=== PATIENT | male | born 1950 | race Caucasian/White ===

== ENCOUNTER → 2020-05-20 | Outpatient (CLI) | payer OTHER | LOC: SJCVC 13:00 | PROVIDERS: ATTEND Internal Medicine Cardiovascular Disease | DX: I51.7 Cardiomegaly (principal); I25.10 Atherosclerotic heart disease of native coronary artery without angina pectoris; E78.00 Pure hypercholesterolemia, unspecified; R00.1 Bradycardia, unspecified; I77.9 Disorder of arteries and arterioles, unspecified; I10 Essential (primary) hypertension ==

== ENCOUNTER → 2021-05-26 | Outpatient (CLI) | payer OTHER | LOC: SJCVCIMAG 10:02 | PROVIDERS: ATTEND Internal Medicine Cardiovascular Disease | DX: I45.2 Bifascicular block (principal); R94.31 Abnormal electrocardiogram [ECG] [EKG]; I25.10 Atherosclerotic heart disease of native coronary artery without angina pectoris; R93.1 Abnormal findings on diagnostic imaging of heart and coronary circulation; I10 Essential (primary) hypertension; E78.00 Pure hypercholesterolemia, unspecified; I44.1 Atrioventricular block, second degree; I77.9 Disorder of arteries and arterioles, unspecified; Z79.82 Long term (current) use of aspirin; Z79.899 Other long term (current) drug therapy ==

== ENCOUNTER → 2021-06-10 | Outpatient (CLI) | payer OTHER | LOC: SJCVC 13:24 | PROVIDERS: ATTEND Internal Medicine Infectious Disease | DX: R94.31 Abnormal electrocardiogram [ECG] [EKG] (principal); I45.2 Bifascicular block; I48.92 Unspecified atrial flutter; I44.30 Unspecified atrioventricular block; I44.2 Atrioventricular block, complete; R00.1 Bradycardia, unspecified; E78.5 Hyperlipidemia, unspecified; I10 Essential (primary) hypertension; E78.00 Pure hypercholesterolemia, unspecified; I25.10 Atherosclerotic heart disease of native coronary artery without angina pectoris; Z79.82 Long term (current) use of aspirin; Z79.899 Other long term (current) drug therapy ==

== ENCOUNTER 2021-06-15 18:02 | Observation (INO) | payer OTHER ==
[~2021-06-15] VITALS: Ht 185.4 cm; Wt 106.6 kg
--- NOTE | ~2021-06-15 | P ---
[facility] [place] [address] PROCEDURE REPORT Name: ANISA ANGEL Room #: 219-P [facility] Alphonso Lopez#: [id number] Admission: 06/15/21 Attend Phys: Kayden Meléndez MD Discharge: 06/16/21 Date of : 48 Report #: [id number] THIS REPORT FOR: cc: Carlos Eduardo Rogers MD, Neal A. MD Couchonnal, Luis F. MD ~ DATE OF SERVICE: 06/15/2021 PROCEDURE: Pacemaker implantation. PREOPERATIVE DIAGNOSIS: Heart block. POSTOPERATIVE DIAGNOSIS: Heart block. HISTORY: The patient is a 71-year-old with history of bifascicular block, recently been having increased fatigue and had evidence of heart block on a recent stress test. He is here for pacemaker implantation. ANESTHESIA: The patient underwent MAC anesthesia with no anesthesia related complications. DESCRIPTION OF PROCEDURE: The patient underwent informed consent. He was then brought to the EP laboratory in a fasting and sedated state, prepped and draped in a standard fashion. He received IV antibiotics and underwent a venogram showing patency of the left axillary vein. Next, I injected lidocaine below the level of left clavicle. Incision was made, pocket created over the prepectoral fascia and access was obtained twice to left axillary vein using the extrathoracic approach. Sheaths were positioned using the modified Seldinger technique. Leads were positioned in the right ventricle and right atrium, both with adequate pacing and sensing thresholds. The leads were sutured to prepectoral fascia. Device connected, tug test performed. Pocket was irrigated with vancomycin. Pocket closed in 2 layers and surgical glue was placed to outer skin layer. There were no procedure related complications. The implanted device and leads were by [employer]. The device was model number W3DR01, serial number [id number], atrial lead was a 5076, 52 cm, serial number [id number]. The ventricular lead was a 5076, 58 cm, serial number [id number]. Atrial lead demonstrated P waves of 2.7 millivolts, pacing impedance of 513 ohms, pacing threshold 1.2 volts at 0.4 milliseconds. RV lead demonstrated R waves of 8.3 millivolts, pacing impedance of 684 ohms, and pacing threshold 0.5 volts at 0.4 milliseconds. The device was programmed to the DDDR 60/130 mode. CONCLUSION: [facility] [address] [place] [address] PROCEDURE REPORT Name: ANGELANISA Room #: 219-P [facility] Alphonso Lopez#: [id number] Admission: 06/15/21 Attend Phys: Kayden Meléndez MD Discharge: 06/16/21 Date of : 48 Report #: [id number] 1. Successful dual chamber pacemaker implantation. 2. Satisfactory atrial and ventricular pacing and sensing thresholds. By: [id number] Kayden Meléndez MD /alonzo
[2021-06-15 11:50] VITALS: BP 157/54
[2021-06-15 11:55] LABS: WBC 6.4 thou/uL (4.0-11.0)
[2021-06-15 11:56] LABS: ABSOLUTE NEUTROPHILS 3.6 thou/uL (1.4-8.2); EOSINOPHILS 9.2 % (0.0-3.0); HEMATOCRIT 42.8 % (42.0-52.0); HEMOGLOBIN 14.5 gm/dL (14.0-18.0); LYMPHOCYTES 25.6 % (24.0-44.0); MCH 30.6 pg (26.0-34.0); MCHC 33.9 g/dL (28.0-37.0); MCV 90.2 fL (80.0-100.0); MONOCYTES 7.4 % (1.0-8.0); PLATELET COUNT 302 thou/uL (150-400); POLYS 56.8 % (36.0-66.0); RBC 4.74 mil/uL (4.50-6.00); RDW 15.3 % (10.5-14.5)
[2021-06-15 11:59] LABS: CALCIUM 8.8 mg/dL (8.5-10.1); POTASSIUM 3.8 mmol/L (3.5-5.1)
[2021-06-15 12:03] LABS: APTT 27.7 Seconds (24.5-32.8); PROTIME 10.9 Seconds (10.5-12.1)
[2021-06-15 12:06] LABS: ALBUMIN 3.8 g/dL (3.4-5.0); TOTAL BILIRUBIN 1.2 mg/dL (0.2-1.0); TOTAL PROTEIN 7.4 g/dL (6.4-8.2)
--- NOTE | 2021-06-15 16:54 | NUR ---
PT BROUGHT FROM PACU TO CATHLAB PREP RECOVERY AT 1645. AWAITING CCU BED. LT UPPER CHEST INCISION CLEAN DRY INTACT. LEFT ARM IN IMMOBILIZER. VSS NSR. HOB ELEVATED 30 DEGREES. EATING AND DRINKING
[~2021-06-15 18:02] MED LIST: ASA81BEC PO; AZELASTIN-FLUTI23 GM NASAL; COZAAR 50 MG TA50 MG PO; LIPITOR40 MG PO; LUNESTA3 MG PO; MELOXICAM15 MG PO; NORVASC10 MG PO; SUPER THERAVIT1 EACH PO
[2021-06-15 18:18] VITALS: BP 137/74
[2021-06-15 20:00] VITALS: BP 137/74
[2021-06-16 04:00] VITALS: BP 129/74
[2021-06-16 09:40] VITALS: BP 133/79
[2021-06-16 12:21] VITALS: BP 142/76
[2021-06-16 13:18] VITALS: BP 142/76
--- NOTE | 2021-06-16 14:07 | NUR ---
PATIENT DISCHARGED. DC EDUCATION AND TEACHING DONE. NO QUESTIONS OR CONCERNS FROM PATIENT. TAKEN BY WHEELCHAIR BY STAFF TO MAIN ENTRANCE WHERE FAMILY WAITS WITH VEHICLE. IV AND TELE REMOVED.
== END 2021-06-16 14:28 | disposition home or self-care (01) ==
LOC: CATH 18:02 → 2N 18:04
PROVIDERS: ADMIT Internal Medicine Cardiovascular Disease; ATTEND Internal Medicine Cardiovascular Disease
DX: I45.9 Conduction disorder, unspecified (principal); I25.10 Atherosclerotic heart disease of native coronary artery without angina pectoris; Z20.822 Contact with and (suspected) exposure to COVID-19; I10 Essential (primary) hypertension; E78.5 Hyperlipidemia, unspecified; I45.10 Unspecified right bundle-branch block; R00.1 Bradycardia, unspecified; Z79.01 Long term (current) use of anticoagulants; Z79.82 Long term (current) use of aspirin; Z79.899 Other long term (current) drug therapy
CPT/HCPCS: 62110; 62900; 70005

== ENCOUNTER → 2021-06-23 | Outpatient (CLI) | payer OTHER | LOC: SJCVCIMAG 08:42 | PROVIDERS: ATTEND Internal Medicine Cardiovascular Disease | DX: I08.3 Combined rheumatic disorders of mitral, aortic and tricuspid valves (principal); I44.2 Atrioventricular block, complete; M25.519 Pain in unspecified shoulder; R00.1 Bradycardia, unspecified; I45.10 Unspecified right bundle-branch block; R93.1 Abnormal findings on diagnostic imaging of heart and coronary circulation; Z95.0 Presence of cardiac pacemaker ==